=== PATIENT | female | born 1940 | race Caucasian/White ===

== ENCOUNTER → 2017-01-24 | Outpatient (CLI) | payer MEDICARE | LOC: GMAJ 10:36 | PROVIDERS: ATTEND Family Medicine | DX: D50.9 Iron deficiency anemia, unspecified (principal); E78.00 Pure hypercholesterolemia, unspecified; E11.9 Type 2 diabetes mellitus without complications; E55.9 Vitamin D deficiency, unspecified; I10 Essential (primary) hypertension ==

== ENCOUNTER → 2017-05-09 | Outpatient (CLI) | payer MEDICARE | END | disposition home or self-care (01) | LOC: GMAJ 11:06 | PROVIDERS: ATTEND Family Medicine | DX: D50.9 Iron deficiency anemia, unspecified (principal); E11.9 Type 2 diabetes mellitus without complications; I10 Essential (primary) hypertension; E55.9 Vitamin D deficiency, unspecified ==

== ENCOUNTER → 2018-07-25 | Outpatient (CLI) | payer MEDICARE ==
--- NOTE | 2018-07-26 10:45 | MAM ---
EXAM DESCRIPTION: 3D Screening BILATERAL : Digital Mammography. CLINICAL HISTORY: 78 years Female ANNUAL SCREENING . No complaints. No personal history or family history of breast cancer. Childbirth. Postmenopausal. Has taken HRT 5 or more years ago. Lifetime risk of developing breast cancer (Tyrer-Cuzick model) is 3 %. COMPARISON: Baseline study at this facility. No prior reports available. TECHNIQUE: Bilateral CC and MLO projection full-field images, Digital tomosynthesis mammographic technique. Bilateral digital 2-D full-field MLO images. CAD not utilized. FINDINGS: The breast parenchymal density pattern is: Scattered areas of fibroglandular density. No skin thickening or nipple retraction. Bilateral solitary microcalcifications. Secretory calcifications anterior left breast. Left breast is larger. No new focal, stellate mass or density, focal asymmetry , and no suspicious microcalcifications bilaterally. IMPRESSION: Benign exam BIRAD CATEGORY: 2 BENIGN FINDINGS RECOMMENDATIONS: FOLLOW UP: Routine digital bilateral screening, one year interval from June 2018. Written communication explaining the IMPRESSION and follow-up, will be mailed to the patient and referring health care provider. According to the [employer], yearly mammograms are recommended starting at age 40 and continuing as long as a woman is in good health. Any breast change noted on a breast self-exam should be reported promptly to the patient's healthcare provider. Breast MRI is recommended for women with an approximately 20-25% or greater lifetime risk of breast cancer, including women with a strong family history of breast or ovarian cancer and women who have been treated for Hodgkin's disease. A negative mammographic report should not delay tissue diagnosis in patients with significant clinical history or physical findings. Extremely dense breast tissue limits the sensitivity of digital mammography. Electronically signed by: Martín Villanueva MD 07/26/2018 10:44 AM CDT
== END ==
LOC: MAMMO 10:00
PROVIDERS: ATTEND Family Medicine
DX: Z12.31 Encounter for screening mammogram for malignant neoplasm of breast (principal)

== ENCOUNTER → 2018-08-20 | Outpatient (CLI) | payer MEDICARE ==
--- NOTE | 2018-08-20 19:01 | MRI ---
EXAM DESCRIPTION: Knee,Left CLINICAL HISTORY: 78 years Female, KNEE PAIN COMPARISON: None. TECHNIQUE: Noncontrast multiplanar multisequence magnetic resonance imaging of the left knee was performed using standard protocol. FINDINGS: Complex severe multidirectional tearing of the medial meniscus primarily involves the body segment, posterior horn and posterior root. The lateral meniscus is relatively normal in appearance. Complete loss of the weightbearing articular surface is present throughout the medial compartment where there is subchondral sclerosis and cystlike change indicating advanced osteoarthritis. Moderate size joint line osteophyte formations of the medial compartment are noted. Nonfocal extensive grade 3-4 chondrosis is seen throughout the medial and lateral patellar facet. Grade 2 chondrosis is noted within the deep trochlear groove extending over to the medial surface. There is small joint line osteophyte formation of the patellofemoral compartment. Mild generalized thinning of the lateral compartment is seen without high-grade chondrosis. The cruciate ligaments are intact. The extensor mechanism is maintained. A moderate size knee joint effusion is seen without significant synovitis. Medial patellar plica measuring less than 0.2 cm in thickness. Collateral ligaments are intact. No fracture, contusion or aggressive marrow infiltrating disease. IMPRESSION: Complex multidirectional medial meniscal tearing/degeneration. 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 Intact lateral meniscus. Intact cruciate and collateral ligaments. Moderate size knee joint effusion. Electronically signed by: Boubacar Celeste MD 08/20/2018 6:59 PM CDT
== END ==
LOC: MRI 10:30
PROVIDERS: ATTEND Family Medicine
DX: S83.242A Other tear of medial meniscus, current injury, left knee, initial encounter (principal); M17.12 Unilateral primary osteoarthritis, left knee; M25.462 Effusion, left knee

== ENCOUNTER → 2018-09-27 | Outpatient (CLI) | payer MEDICARE ==
--- NOTE | 2018-09-27 11:36 | RAD ---
EXAM DESCRIPTION: Pelvis CLINICAL HISTORY: HIP PAIN COMPARISON: None. TECHNIQUE: AP pelvis FINDINGS: Degenerative changes are observed in the lower lumbar spine. No pelvic fracturing is detected. The proximal femurs are intact. The sacroiliac joints are unremarkable. IMPRESSION: Degenerative changes are observed in the lower lumbar spine. The exam is otherwise unremarkable. Electronically signed by: Hair Triana MD 09/27/2018 11:34 AM CDT
--- NOTE | 2018-09-27 11:37 | RAD ---
EXAM DESCRIPTION: Knee,Left Complete CLINICAL HISTORY: KNEE PAIN COMPARISON: None. TECHNIQUE: 4 views left FINDINGS: Degenerative changes are observed in the medial joint compartment with loss of joint space and subchondral cyst formation in the medial femoral condyle. Vascular clips are observed along the medial aspect of the knee. Mild patellofemoral joint arthritis is seen. No joint effusion is detected. IMPRESSION: Degenerative changes are observed most pronounced in the medial joint compartment. Electronically signed by: Hair Triana MD 09/27/2018 11:35 AM CDT
== END ==
LOC: RAD 09:16
PROVIDERS: ATTEND Orthopaedic Surgery
DX: M25.562 Pain in left knee (principal); M25.552 Pain in left hip

== ENCOUNTER → 2019-06-25 | Outpatient (CLI) | payer MEDICARE | LOC: GMAJ 11:37 | PROVIDERS: ATTEND Family Medicine | DX: D64.9 Anemia, unspecified (principal); E53.8 Deficiency of other specified B group vitamins; E55.9 Vitamin D deficiency, unspecified; I10 Essential (primary) hypertension; E78.2 Mixed hyperlipidemia; E11.9 Type 2 diabetes mellitus without complications ==